=== PATIENT | male | born 1945 | race Caucasian/White ===

== ENCOUNTER 2024-06-25 18:20 | Emergency (ER) | payer MEDICARE, BC ==
[~2024-06-25] VITALS: Ht 167.6 cm; Wt 59.0 kg
[2024-06-25] MEDS: VANCOMYCIN 1 GM in IV D5W 250 ML IV ONE (19:00)
[2024-06-25 19:18] LABS: BASOPHILS % (AUTO) 0.6 % (0.0-2.0); EOSINOPHILS # (AUTO) 0.1 K/uL (0.0-0.7); EOSINOPHILS % (AUTO) 1.3 % (0.0-6.0); HEMATOCRIT 43 % (39-51); HEMOGLOBIN 14.4 g/dL (13.5-17.5); LYMPHOCYTES # (AUTO) 1.4 K/uL (0.8-4.8); LYMPHOCYTES % (AUTO) 26.3 % (20.0-44.0); MEAN CORPUSCULAR HEMOGLOBIN 31 PG (26.0-33.0); MEAN CORPUSCULAR HGB CONC 33 g/dl (31.0-36.0); MEAN CORPUSCULAR VOLUME 92 fL (80-96); MONOCYTES # (AUTO) 0.5 K/uL (0.1-1.30); MONOCYTES % (AUTO) 9.2 % (2.0-12.0); NEUTROPHILS # (AUTO) 3.2 K/uL (1.8-8.9); NEUTROPHILS % (AUTO) 62.6 % (43.0-81.0); PLATELET COUNT (AUTO) 214 K/uL (150-450); RED BLOOD CELL COUNT(AUTO) 4.71 MIL/uL (4.5-6.0); RED CELL DISTRIBUTION WIDTH 13.7 % (11.5-15.0); WHITE BLOOD COUNT (AUTO) 5.2 K/uL (4.3-11.0)
[2024-06-25] MEDS: IV NS 0.9% 1,000 ML BAG IV ONE (19:23)
[2024-06-25 19:32] LABS: ALANINE AMINOTRANSFERASE 27 U/L (12-78); ALBUMIN 3.2 g/dL (3.4-5.0); ALKALINE PHOSPHATASE 92 U/L (46-116); ASPARTATE AMINOTRANSFERASE 24 U/L (15-37); BILIRUBIN,DIRECT 0.2 mg/dL (0.0-0.2); BILIRUBIN,TOTAL 0.6 mg/dL (0.2-1.0); CALCIUM, SERUM 9.4 mg/dL (8.5-10.1); CARBON DIOXIDE 29 mmol/L (21-32); CHLORIDE 106 mmol/L (98-107); CREATININE 0.6 mg/dL (0.6-1.3); GLUCOSE 88 mg/dL (74-106); POTASSIUM 4.1 mmol/L (3.5-5.1); SODIUM SERUM 143 mmol/L (136-145); TOTAL PROTEIN, SERUM 7.3 g/dL (6.4-8.2); UREA NITROGEN, BLOOD 26 mg/dL (7-18)
[2024-06-25] MEDS: CEFEPIME 1 GM in IV D5W 50 ML IV ONE (19:32)
[2024-06-25 19:35] LABS: INR 1.01 (0.91-1.10); PARTIAL THROMBOPLASTIN TIME 25.1 SEC (24.3-34.3); PROTHROMBIN TIME 10.7 SECS (9.2-11.1)
[2024-06-25] MEDS ORDERED: VANCOMYCIN 1 GM /D5W 250 ML PB IV ONE (19:44)
[2024-06-25 20:11] LABS: ABG OXYGEN SATURATION 97.7 % (94.0-98.0); ABG PCO2 38.4 mmHg (35.0-48.0); ABG PH 7.433 (7.350-7.450); ABG PO2 105.1 mmHg (83.0-108.0); ABG TOTAL HEMOGLOBIN 13.6 G/dL (13.5-17.5); COHb 0.2 % (0.5-1.5); MetHb 0.1 % (0.0-1.5); O2Hb 97.4 % (94.0-97.0); SITE, ABG LEFT RADIAL
[2024-06-25 20:53] LABS: LACTIC ACID 1.1 mmol/L (0.4-2.0)
[2024-06-25 21:00] LABS: APPEARANCE,URINE CLEAR (CLEAR); BILIRUBIN,URINE NEGATIVE (NEGATIVE); BLOOD, URINE NEGATIVE Ery/uL (NEGATIVE); COLOR,URINE YELLOW (YELLOW); KETONES,URINE NEGATIVE (NEGATIVE); LEUKOCYTE ESTERASE ,URINE NEGATIVE (NEGATIVE); NITRITE, URINE NEGATIVE (NEGATIVE); PROTEIN,URINE NEGATIVE (NEGATIVE); UGLUCOSE NEGATIVE (NEGATIVE); UROBILINOGEN,URINE 0.2 EU/dL (0.2)
[2024-06-25] MEDS ORDERED: AMOX500T2 PO (21:14)
[2024-06-25] MEDS ORDERED: DOXY100T2 PO (21:14)
[2024-06-25 21:35] VITALS: BP 133/83; TEMP 97.8; O2SAT 99
== END 2024-06-25 21:36 | disposition home or self-care (01) ==
LOC: ER 18:37
DX: J18.9 Pneumonia, unspecified organism (principal); G12.21 Amyotrophic lateral sclerosis; R09.02 Hypoxemia; Z74.01 Bed confinement status
CPT/HCPCS: 99285; 96365; 71045; 96366; 96368; 93005; 82803; 84145; 85025; 80048; 87040 ×2; 87086; 83605; 80076; 81003; 36415; 84484; 85730; 36600; J3370 ×2; J7060; A4223; J0692